=== PATIENT | female | born 1940 | race Caucasian/White ===

== ENCOUNTER 2018-06-19 08:17 | Outpatient (CLI) | payer MEDICARE, OTHER ==
--- NOTE | 2018-06-19 14:37 | NM ---
NUCLEAR MEDICINE Magalie SCAN: 06/19/2018 HISTORY: A 77-year-old female with tremor, Parkinson disease. TECHNIQUE: Pretreated with 130 mg of potassium iodide p.o. one hour prior to Ioflupane injection. Technetium 99 m I-123 Ioflupane, 5.1 millicuries, injected IV. Three hours later, scintigraphy of the brain obtained in the axial plane. FINDINGS: There is normal uptake in the bilateral caudate heads. There is uptake in the bilateral putamina pos teriorly, but this is diminished. IMPRESSION: Diminished (but not absent) activity in the bilateral putamina, suggestive of early parkinsonism. POS: [facility]
== END 2018-06-19 08:18 | disposition home or self-care (01) ==
LOC: NM 08:17
PROVIDERS: ATTEND Psychiatry & Neurology Neurology
DX: G20 Parkinson's disease (principal)
CPT/HCPCS: 78607; A9584

== ENCOUNTER 2018-07-29 10:56 | Outpatient (CLI) | payer MEDICARE, OTHER | END 2018-07-29 10:57 | disposition home or self-care (01) | LOC: BICMAMMO 10:56 | PROVIDERS: ATTEND Internal Medicine | DX: Z12.31 Encounter for screening mammogram for malignant neoplasm of breast (principal); R92.1 Mammographic calcification found on diagnostic imaging of breast; Z80.3 Family history of malignant neoplasm of breast | CPT/HCPCS: 77063; 77067 ==

== ENCOUNTER 2019-03-20 07:25 | Outpatient (CLI) | payer MEDICARE, OTHER ==
--- NOTE | 2019-03-20 08:08 | ULT ---
Abdominal ultrasound: Grayscale images of abdomen obtained according to protocol. INDICATIONS: Abdominal pain FINDINGS: Post cholecystectomy status. Common bile duct is normal caliber. Liver and spleen appear unremarkable. There is a small left lobe hepatic cyst measuring 1.5 cm. Pancreas is mostly obscured but appears unremarkable as visualized. Visualized aorta and IVC appear unremarkable. Mild right renal hydronephrosis. Kidneys otherwise unremarkable. IMPRESSION: 1. Mild right hydronephrosis 2. Small hepatic cyst
== END 2019-03-20 07:26 | disposition home or self-care (01) ==
LOC: BICULT 07:25
PROVIDERS: ATTEND Specialist
DX: K58.2 Mixed irritable bowel syndrome (principal); R10.9 Unspecified abdominal pain; N13.30 Unspecified hydronephrosis; K76.89 Other specified diseases of liver
CPT/HCPCS: 76700

== ENCOUNTER 2019-09-30 11:09 | Outpatient (CLI) | payer MEDICARE, OTHER ==
--- NOTE | 2019-09-30 15:32 | MMO ---
Bilateral MAMMO Bilat Screen [facility]. CLINICAL HISTORY: Patient is 79 years old and is seen for screening. The patient has the following family history of breast cancer: maternal grandmother. The patient has no personal history of cancer. VIEWS: The views performed were: bilateral craniocaudal with tomosynthesis and bilateral mediolateral oblique with tomosynthesis. FILMS COMPARED: The present examination has been compared to prior imaging studies performed at [facility] on 07/13/2015, 07/18/2016, 07/25/2017 and 07/29/2018. This study has been interpreted with the assistance of computer-aided detection. MAMMOGRAM FINDINGS: There are scattered fibroglandular densities. Benign calcifications are noted bilaterally. There are no suspicious masses, suspicious calcifications, or new areas of architectural distortion. IMPRESSION: THERE IS NO MAMMOGRAPHIC EVIDENCE OF MALIGNANCY. A ROUTINE FOLLOW-UP MAMMOGRAM IN 1 YEAR IS RECOMMENDED. THE RESULTS OF THIS EXAM WERE SENT TO THE PATIENT. ACR BI-RADS Category 2 - Benign finding MAMMOGRAPHY NOTE: 1. A negative mammogram report should not delay a biopsy if a dominant of clinically suspicious mass is present. 2. Approximately 10% to 15% of breast cancers are not detected by mammography. 3. Adenosis and dense breasts may obscure an underlying neoplasm. Reported by: REBEKAH GARCIA MD Electonically Signed: [id number]
== END 2019-09-30 11:10 | disposition home or self-care (01) ==
LOC: BICMAMMO 11:09
PROVIDERS: ATTEND Internal Medicine
DX: Z12.31 Encounter for screening mammogram for malignant neoplasm of breast (principal); Z80.3 Family history of malignant neoplasm of breast
CPT/HCPCS: 77063; 77067

== ENCOUNTER 2020-11-17 13:51 | Outpatient (CLI) | payer MEDICARE ==
--- NOTE | 2020-11-17 16:09 | MMO ---
Bilateral MAMMO Bilat Screen [facility]. CLINICAL HISTORY: Patient is 80 years old and is seen for screening. The patient has the following family history of breast cancer: maternal grandmother. The patient has no personal history of cancer. VIEWS: The views performed were: bilateral craniocaudal with tomosynthesis and bilateral mediolateral oblique with tomosynthesis. FILMS COMPARED: The present examination has been compared to prior imaging studies performed at [facility] on 07/18/2016, 07/25/2017, 07/29/2018 and 09/30/2019. This study has been interpreted with the assistance of computer-aided detection. MAMMOGRAM FINDINGS: There are scattered fibroglandular densities. Finding 1: There are stable benign appearing calcifications seen in both breasts. Finding 2: There are multiple fat containing, round masses of varying size with circumscribed margins seen in the right breast. Evidence for fat necrosis. There are no suspicious masses, suspicious calcifications, or new areas of architectural distortion. IMPRESSION: THERE IS NO MAMMOGRAPHIC EVIDENCE OF MALIGNANCY. A ROUTINE FOLLOW-UP MAMMOGRAM IN 1 YEAR IS RECOMMENDED. THE RESULTS OF THIS EXAM WERE SENT TO THE PATIENT. ACR BI-RADS Category 2 - Benign finding MAMMOGRAPHY NOTE: 1. A negative mammogram report should not delay a biopsy if a dominant of clinically suspicious mass is present. 2. Approximately 10% to 15% of breast cancers are not detected by mammography. 3. Adenosis and dense breasts may obscure an underlying neoplasm. Reported by: ANDREAS SCHWARTZ MD Electonically Signed: [id number]
== END 2020-11-17 13:52 | disposition home or self-care (01) ==
LOC: BICMAMMO 13:51
PROVIDERS: ATTEND Internal Medicine
DX: Z12.31 Encounter for screening mammogram for malignant neoplasm of breast (principal); Z80.3 Family history of malignant neoplasm of breast
CPT/HCPCS: 77063; 77067

== ENCOUNTER 2021-04-29 14:41 | Outpatient (CLI) | payer MEDICARE | END 2021-04-29 14:42 | disposition home or self-care (01) | LOC: BICMAMMO 14:41 | PROVIDERS: ATTEND Internal Medicine | DX: N64.4 Mastodynia (principal) | CPT/HCPCS: 76642; 77065; G0279 ==

== ENCOUNTER 2022-05-24 14:56 | Outpatient (CLI) | payer MEDICARE | END 2022-05-24 14:57 | disposition home or self-care (01) | LOC: BICMAMMO 14:56 | PROVIDERS: ATTEND Internal Medicine | DX: Z12.31 Encounter for screening mammogram for malignant neoplasm of breast (principal); Z80.3 Family history of malignant neoplasm of breast | CPT/HCPCS: 77063; 77067 ==

== ENCOUNTER 2023-09-12 14:23 | Outpatient (CLI) | payer MEDICARE, OTHER | END 2023-09-12 14:24 | disposition home or self-care (01) | LOC: BICMAMMO 14:23 | PROVIDERS: ATTEND Internal Medicine | DX: Z12.31 Encounter for screening mammogram for malignant neoplasm of breast (principal); Z80.3 Family history of malignant neoplasm of breast | CPT/HCPCS: 77063; 77067 ==